=== PATIENT | male | born 2000 | race Hispanic/Latino ===

== ENCOUNTER 2019-07-02 18:46 | Emergency (ER) | payer BC, OTHER ==
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
[2019-07-02] MEDS ORDERED: LORazepam 2 MG/ML VIAL ONE (18:55)
[2019-07-02 19:13] LABS: Absolute Lymphocytes (CBC) 3.2 K/uL (0.7-4.9); Basophils % 0.3 % (0-1.3); Hematocrit 42.8 % (39.6-49.0); Lymphocytes % 44.9 % (15.3-44.8); MPV 9.4 fL (7.6-11.3); RBC Red Blood Cell Count 4.35 M/uL (4.33-5.43)
[2019-07-02 19:17] LABS: Protime INR 0.88
[2019-07-02 19:31] LABS: ALT/SGPT 42 U/L (12-78); AST/SGOT 32 U/L (15-37); Albumin 3.8 g/dL (3.4-5.0); Alkaline Phosphatase 123 U/L (45-117); BUN Blood Urea Nitrogen 22 mg/dL (7-18); Bicarbonate 23 mmol/L (21-32); Bilirubin Direct < 0.1 mg/dL (0-0.2); Bilirubin Total 0.2 mg/dL (0.2-1.0); Glucose Level 112 mg/dL (74-106); Potassium 3.7 mmol/L (3.5-5.1); Sodium Level 142 mmol/L (136-145)
[2019-07-02 20:28] LABS: Barbiturates NEGATIVE (NEGATIVE); Benzodiazepines NEGATIVE (NEGATIVE); Cocaine NEGATIVE (NEGATIVE); METHAMPHETAM NEGATIVE (NEGATIVE); Methadone NEGATIVE (NEGATIVE); Opiates NEGATIVE (NEGATIVE); Phencyclidine NEGATIVE (NEGATIVE); THC Cannibis NEGATIVE (NEGATIVE)
--- NOTE | 2019-07-02 20:28 | RAD REPORT ---
EXAM DESCRIPTION: CT - Head Brain Wo Cont - 07/02/2019 7:39 pm CLINICAL HISTORY: Seizure COMPARISON: None. TECHNIQUE: Axial 5 mm thick images of the head were obtained without IV contrast. All CT scans are performed using dose optimization technique as appropriate and may include automated exposure control or mA/KV adjustment according to patient size. FINDINGS: No intracranial hemorrhage is present. There is extensive encephalomalacia involving nearl y the entirety of the left cerebral hemisphere. Left cerebellum is intact. Left thalamus and most of the left basal ganglia region remains intact. Left lateral ventricle has enlarged in proportion to th e amount of volume loss. There is midline shift that is associated with the volume loss. No mass effe ct or acute etiology causing midline shift. No cortical edema or sulcal effacement. No acute infarcti on is suspected. Delete select Mastoid air cells and visualized portions of the paranasal sinuses are clear. Postsurgical changes are noted to the left side of the skull. IMPRESSION: No hemorrhage, mass or acute intracranial finding. Near complete encephalomalacia the left cerebral hemisphere sparing the basal ganglia and thalamus.
[2019-07-02 20:37] LABS: Urine Bacteria <20 /HPF (NONE SEEN)
[2019-07-02 20:38] LABS: Urine Blood TRACE (NEG); Urine Glucose NEGATIVE (NEG); Urine Protein 2+ (NEG); Urine Specific Gravity >1.030 (1.005-1.030)
[2019-07-02 20:38] LABS: Urine Amorphous Sediment 2+ /HPF (NONE SEEN); Urine Culture Reflex Order NOT NEEDED; Urine Mucus 2+ /HPF (NONE SEEN)
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
--- NOTE | 2019-07-02 22:13 | ER ---
Nurse's Notes 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 BGL-131 mg/dl. he has been Vitally stable. 19:05 Transition of care: patient was not received from another setting of care. Onset of mg2 symptoms was July 02, 2019. Risk Assessment: Do you want to hurt yourself or someone else? Patient reports no desire to harm self or others. Initial Sepsis Screen: Does the patient meet any 2 criteria? No. Patient's initial sepsis screen is negative. Does the patient have a suspected source of infection? No. Patient's initial sepsis screen is negative. 19:05 Method Of Arrival: EMS: [facility] mg2 19:05 Acuity: SILVANO 3 mg2 19:38 Care prior to arrival: None. mg2 Historical: - Allergies: 19:38 No Known Allergies; mg2 - Home Meds: 19:38 None [Active]; mg2 - PMHx: 19:38 Seizures; mg2 - PSHx: 19:38 None; mg2 - Immunization history:: Flu vaccine is up to date. - Social history:: Smoking status: Patient/guardian denies using tobacco, Patient/guardian denies using alcohol, street drugs, IV drugs. - Ebola Screening: : No symptoms or risks identified at this time. Screenin:33 Abuse screen: Denies threats or abuse. Denies injuries from another. Nutritional mg2 screening: No deficits noted. Tuberculosis screening: No symptoms or risk factors identified. Fall Risk Secondary diagnosis (15 points) seizures, IV access (20 points). Gait- Impaired (20 pts.). Mental Status- Overestimates/Forgets Limitations (15 pts.). Assessment: 18:58 Neuro: Level of Consciousness is post ictal, Seizure activity noted at this time. mg2 reported prior to arrival. Type of seizure: atonic seizure. Cardiovascular: Capillary refill < 3 seconds Patient's skin is warm and dry. Rhythm is sinus tachycardia. Respiratory: Airway is patent Respiratory effort is even, unlabored, Respiratory pattern is regular, symmetrical. GI: No signs and/or symptoms were reported involving the gastrointestinal system. : No signs and/or symptoms were reported regarding the genitourinary system. EENT: No signs and/or symptoms were reported regarding the EENT system. Derm: Skin is intact, is healthy with good turgor, Skin is pink, warm \T\ dry. normal. Musculoskeletal: patient is contracted but that is hid baseline. 19:10 General: Appears in no apparent distress. comfortable, Behavior is appropriate for age. mg2 19:33 Reassessment: patient sent to de via stretcher. Pain: Unable to use pain scale. Patient mg2 appears quiet, patient is sleeping. 21:32 Reassessment: Patient appears in no apparent distress at this time. Patient and/or mg2 family updated on plan of care and expected duration. Pain level reassessed. Vital Signs: 19:05 BP 117 / 78; Pulse 119; Resp 18; Temp 97.9; Pulse Ox 96% on R/A; Weight 43.54 kg (R); mg2 20:00 BP 113 / 90; Pulse 62; Resp 18; Pulse Ox 97% ; mg2 21:31 BP 98 / 73; Pulse 60; Resp 18; Pulse Ox 98% on R/A; mg2 ED Course: 18:55 Patient arrived in ED. mg2 19:03 Manuel Azul PA is PHCP. jr8 19:03 Gilbert Marques MD is Attending Physician. jr8 19:28 Jose Goldman RN is Primary Nurse. mg2 19:30 Triage completed. mg2 19:31 Arm band placed on. mg2 19:32 No provider procedures requiring assistance completed. Maintain EMS IV. Dressing mg2 intact. Good blood return noted. Site clean \T\ dry. Gauge \T\ site: 22 \T\ RH. 19:37 CT completed. Patient tolerated procedure well. Patient moved to ID via stretcher. Patient moved back from ID. 19:38 Patient has correct armband on for positive identification. station detective on. Pulse mg2 ox on. NIBP on. Door closed. Warm blanket given. 20:15 Straight cath inserted, using sterile technique, 14 Fr. Returned 200. Patient tolerated mg2 well. 22:59 IV discontinued, intact, bleeding controlled, No redness/swelling at site. Pressure mg2 dressing applied. Administered Medications: 18:56 Drug: Ativan 1 mg Route: IVP; Site: right hand; mg2 19:57 Follow up: Response: No adverse reaction mg2 Outcome: 22:11 Discharge ordered by MD. mccrary 22:59 Discharged to home via wheelchair, with family. mg2 22:59 Condition: stable 22:59 Discharge instructions given to family, Instructed on discharge instructions, follow up and referral plans. Demonstrated understanding of instructions, follow-up care. 23:00 Patient left the ED. mg2 Signatures: Shawn Allen Josh, PA PA jr8 Jose Goldman, RN RN mg2
[2019-07-03 01:14] VITALS: BP 98/73; O2SAT 98
--- NOTE | 2019-07-03 07:52 | EKG ---
Test Date: 2019-07-02 Test Time: 19:07:12 Airway Traffic Controller: MG MEASUREMENT RESULTS: Intervals: Rate: 107 DC: 150 QRSD: 74 QT: 316 QTc: 421 [place]: P: 51 DC: 150 QRS: 42 T: 49 INTERPRETIVE STATEMENTS: Sinus tachycardia Otherwise normal ECG Compared to ECG 07/02/2019 19:06:14 No significant changes Electronically Signed On 07-03-19 07:51:23 AUTOPSY PATHOLOGIST by Jude Greene
== END 2019-07-02 23:00 | disposition home or self-care (01) ==
LOC: ER 18:46
DX: R56.9 Unspecified convulsions (principal)
CPT/HCPCS: 36415; 51702; 70450; 80048; 80076; 80307; 80320; 80329; 81003; 81015; 85025; 85610; 85730; 93005; 96374; 99284

== ENCOUNTER 2019-11-06 03:04 | Observation (INO) | payer BC, OTHER ==
[2019-11-06 07:11] VITALS: BMI 17.6
[2019-11-06 14:21] VITALS: O2SAT 98
[2019-11-06 17:39] VITALS: BP 100/63; TEMP 96
== END 2019-11-06 17:06 | disposition home or self-care (01) ==
LOC: ER 03:04 → ERHOLD 05:03 → 4TH 05:53 → 2ND 11:27
PROVIDERS: ADMIT Hospitalist; ATTEND Hospitalist
DX: G40.909 Epilepsy, unspecified, not intractable, without status epilepticus (principal); G80.9 Cerebral palsy, unspecified; T68.XXXA Hypothermia, initial encounter; M24.50 Contracture, unspecified joint; Z20.828 Contact with and (suspected) exposure to other viral communicable diseases
CPT/HCPCS: 36415; 51702; 71045; 80048; 80076; 81003; 81015; 83690; 83735; 85025; 87040; 87070; 87081; 87086; 87088; 87184; 87205; 87804; 93005; 96374; 96375; 99285; G0378; J0696; J1953; J3475; J7030; J7040; U0002

== ENCOUNTER 2020-01-02 20:41 | Emergency (ER) | payer BC, OTHER ==
--- OUTSIDE RECORDS SUMMARY | 2020-01-02 20:43 | XMS REPORT | Summary of Care ---
:2000 Author Organization [facility] [place] Address [address] [place] [address]- Encounter HQ Meliza(FIN) [id number] Date(s): 11/14/19 - 11/14/19 [facility] [place] [address] [place] [address] [phone] Discharge Disposition: Home or Self Care Attending Physician: Jose Acosta MD Referring Physician: Jose Acosta MD Vital Signs No data available for this section Problem List Condition Effective Dates Status Health Status Informant Epilepsy(Confirmed) Active Brain damage(Confirmed) Active Allergies, Adverse Reactions, Alerts No Known Medication Allergies Medications lacosamide 50 mg oral tablet 50 mg = 1 tab, PO, BID, # 60 tab, 1 Refill(s), Pharmacy: [place] [id number] Start Date: 11/14/19 Stop Date: 01/13/20 Status: OrderedlevETIRAcetam 500 mg oral tablet See Instructions, 1/2 tab PO Daily, # 30 tab, 1 Refill(s), other Start Date: 11/14/19 Status: Ordered Results No data available for this section Immunizations No data available for this section Procedures Procedure Date Related Diagnosis Body Site Status Craniotomy Completed Social History Social History Type Response Employment/School 1 Smoking Status Never smoker; Exposure to To bacco Smoke Unable to obtain; Cigarette Smoking Last 365 Days Unable to obtain; Reg Smoking Cessation Counseling No entered on: 11/13/19 1May release medical information to-Zuri Whitehead- Geovany Assessment and Plan No data available for this section
--- OUTSIDE RECORDS SUMMARY | 2020-01-02 20:43 | XMS REPORT | Continuity of Care Document ---
:2000 Author Organization [employer] Care Team Providers Name Role Phone [employer] Unavailable Un available Problems Problem Status Onset Classification Date Comments Sourc e Date Reported Epilepsy Active Problem 11/16/2019 [facility] (disorder) Neuro Traumatic Active Problem 11/16/2019 [facility] AND/OR Neuro non-traumatic brain injury (disorder) Medications Medication Details Route Status Patient Ordering Order Source Instructions Provider Date Levetiracetam See Active Mischer 500 MG Oral Instructions 020 Neuro Tablet , 1/2 tab PO Daily, # 30 tab, 1 Refill(s), other lacosamide 50 mg 50 mg = 1 Active Misch er oral tablet tab, PO, 020 Neuro BID, # 60 tab, 1 Refill(s), Pharmacy: [place] [id number] Levetiracetam 500 mg = 1 No Longer Misch er 500 MG Oral tab, PO, Active 020 Neuro Tablet Daily, X 30 day, # 30 tab, 3 Refill(s), Pharmacy: [place] [id number] Amoxicillin 0 Refill(s) Active [facility]ischer 020 Neuro Folic Acid 1 MG 0 Refill(s) Inactive Mis keanu Oral Tablet 020 Neuro Levetiracetam 0 Refill(s) Inactive Misch er 500 MG Oral 020 Neuro Tablet Allergies, Adverse Reactions, Alerts Substance Category Reaction Severity Reaction Status Date Comments S ource type Reported No Known Assertion Drug Misch er Medication allergy Neuro Allergies Immunizations No Data Provided for This Section Results No Data Provided for This Section Pathology Reports No Data Provided for This Section Diagnostic Reports No Data Provided for This Section Consultation Notes No Data Provided for This Section Discharge Summaries No Data Provided for This Section History and Physicals No Data Provided for This Section Vital Signs Vital Sign Value Date Comments Source Systolic (mm Hg) 106 11/13/2019 [facility] Diastolic (mm Hg) 77 11/13/2019 [facility] Heart Rate 67 11/13/2019 [facility] Respitory Rate 16 11/13/2019 [facility] Neuro Temperature Oral (F) 85.3 F 11/13/2019 [facility] Neuro Encounters Location Location Encounter Encounter Reason Attending ADM DC Stat us Source Details Type Number For Provider Date Date Visit Outpatient [id number] Jose 11/12 Active [facility] /2019 [facility] Outpatient [id number] Jose 11/12 11/13 [facility] /2019 [facility] [id number] Jose 11/13 Active [facility] /2019 [facility] Outpatient [id number] Jose 11/13 11/14 [facility] /2019 [facility] [id number] Jose 01/13 Active [facility] /2019 Isael Procedures Procedure Code Date Perfomer Comments Source Craniotomy [id number] [facility] Neuro Assessment and Plan No Data Provided for This Section Plan of Care No Data Provided for This Section Social History Social History Date Source Social History TypeResponse 11/13/2019 [facility] Neur o Employment/School 1 Smoking Status Never smoker; Exposure to Tobacco Smoke Unable to obtain; Cigarette Smoking Last 365 Days Unable to obtain; Reg Smoking Cessation Counseling No entered on: 11/13/19 1May release medical information to-Zuri Hortonphillip- Mom Family History No Data Provided for This Section Advance Directives No Data Provided for This Section Functional Status No Data Provided for This Section
--- OUTSIDE RECORDS SUMMARY | 2020-01-02 20:44 | XMS REPORT | Summary of Care ---
:2000 Author Organization [facility] [place] Address [address] [place] [address]- Encounter HQ Meliza(RIKKI) [id number] Date(s): 11/13/19 - 11/13/19 [facility] [place] [address] [place] [address]- [phone] Discharge Disposition: Home or Self Care Attending Physician: Jose Acosta MD Referring Physician: Jose Acosta MD Vital Signs Most recent to oldest [Reference Range]: 1 Temperature Oral [96.4-99.1 DegF] 85.3 DegF *LOW* (11/13/19 2:16 PM) Blood Pressure [90-140/60-90 mmHg] 106/77 mmHg (11/13/19 2:16 PM) Respiratory Rate [14-20 BRMIN] 16 BRMIN (11/13/19 2:16 PM) Peripheral Pulse Rate [60-100 bpm] 67 bpm (11/13/19 2:16 PM) Problem List Condition Effective Dates Status Health Status Informant Epilepsy(Confirmed) Active Brain damage(Confirmed) Active Allergies, Adverse Reactions, Alerts No Known Medication Allergies Medications amoxicillin 0 Refill(s) Start Date: 11/13/19 Status: Orderedfolic acid 1 mg oral tablet 0 Refill(s) Start Date: 11/13/19 Stop Date: 11/13/19 Status: DiscontinuedlevETIRAcetam 500 mg oral tablet 0 Refill(s) Start Date: 11/13/19 Stop Date: 11/13/19 Status: DiscontinuedlevETIRAcetam 500 mg oral tablet 500 mg = 1 tab, PO, Daily, X 30 day, # 30 tab, 3 Refill(s), Pharmacy: [place] [id number] Start Date: 11/13/19 Stop Date: 11/14/19 Status: Completed Results No data available for this section [...] 11/13/19 1May release medical information to-Zuri Whitehead- Mom Assessment and Plan No data available for this section
--- OUTSIDE RECORDS SUMMARY | 2020-01-02 20:44 | XMS REPORT | Continuity of Care Document ---
:[address] [facility] [place] [place] t Address [address] [place] [address] Care Team Providers Name Role Phone DinahGilbert murillo Attending Clinician Problems Condition Condition Condition Status Onset Resolution Last Treating Co mments Source Name Details Category Date Date Treatment Clinician Date Traumatic Traumatic Problem Active [facility] - injury, injury, Memoria without without l loss of loss of Outpati consciousn consciousn en t ess, ess, Clinics sequela sequela Total Total Problem Active [facility] self[facility]care self-care [facility] - deficit deficit [facility] Outpat[facility] ent Clinics Seasonal Seasonal Problem Active [facility] - rhinitis rhinitis Mem[facility] a l Outpati ent Clinics Shaken Shaken Problem Active [facility] - syndrome, syndrome, Tavo sabas sequela sequela l Outpati ent Clinics Seizures Seizures Problem [facility] 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[facility] able able [facility] - epilepsy epilepsy Memori a without without l status status Outpati epilepticu epilepticu en t s, s, Clinics unspecifie unspecifie d epilepsy d epilepsy type type Incontinen Incontinen Problem Active [facility] ce of ce of [facility] - feces, feces, Memoria unspecifie unspecifie l d fecal d fecal Outpati incontinen incontinen en t ce type ce type Clinics Wheelchair 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 Natalie kes - Mem[facility] l Outpati ent Clinics Urinary Urinary Problem Active [facility] incontinen incontinen Natalie kes - ce, ce, Memoria unspecifie unspecifie l d type d type Outpati ent Clinics Swelling Swelling Problem [facility] right [facility] right [facility] - foot foot [facility] Clin[facility] Right foot Right foot Problem Active [facility] pain pain [facility] Pain, Pain, Diagnosis Active [facility] joint, joint, [facility] - foot, foot, Memoria right right l Outpati ent Clinics Epilepsy Problem Active 2019-11-16 Mem oria (disorder) 23:22:21 l Epilepsy Sharif n (disorder) Active Problem 11/16/2019 [facility] Traumatic Problem Active 2019-11-16 Me moria AND/OR 23:22:21 l non-trauma Sharif n tic brain Traumatic injury AND/OR (disorder) non-trauma tic brain injury (disorder) Active Problem 11/16/2019 [facility] Allergies, Adverse Reactions, Alerts Allergy Allergy Status Severity Reaction(s) Onset Inactive Treating Comm ents Source Name Type Date Date Clinician No Known No Known Active Memori a Medicati Medicati l on on Isael Allergie Allergthad s s Social History Social Habit Start Date Stop Date Quantity Comments Source Social History 2019-11-13 2019-11-13 [facility] 19:34:37 19:34:37 Medications Ordered Filled Start Stop Current Ordering Indication Dosage Frequency Signature Comments Components Source Medication Medication Date Date Medication? Clinician (SIG) Name Name Levetiracet Yes See Memori a am 500 MG 4-30 Instructio l Oral Tablet 23:34: ns, 1/2 Her dubose 00 tab PO Daily, # 30 tab, 1 Refill(s), other lacosamide Yes 50 mg = 1 Me moria 50 mg oral 4-30 tab, PO, l tablet 23:34: BID, # 60 Sharif n 00 tab, 1 Refill(s), Pharmacy: [place] [id number] Levetiracet 2020-0 No 500 mg = 1 Memoria am 500 MG 4-29 tab, PO, l Oral Tablet 20:03: Daily, X He rmann 00 30 day, # 30 tab, 3 Refill(s), Pharmacy: [place] [id number] Amoxicillin 2019-0 Yes 0 Memori a 4-29 Refill(s) l 19:34: [place] 00 Folic Acid 2019-0 No 0 Memoria 1 MG Oral 4-29 Refill(s) l Tablet 19:27: [place] 00 Levetiracet 2020-0 No 0 Memori a am 500 MG 4-29 Refill(s) l Oral Tablet 19:27: Sharif n 00 Immunizations Ordered Filled Immunization Date Status Comments Sour e Immunization Name Name Flucelvax - single Flucelvax - single 2019-07-[address] [facility] - dose syringe dose syringe 00:00:00 [facility] Vital Signs Vital Name Observation Time Observation Value Comments Source Systolic (mm Hg) 2019-11-13 19:16:00 Tavo [place] Diastolic (mm Hg) 2019-11-13 19:16:00 Mem orial [facility]ael Heart Rate 2019-11-13 19:16:00 [facility] [place] Respitory Rate 2019-11-13 19:16:00 Memori al [place] Temperature Oral (F) 2019-11-13 19:16:00 85.3 F [facility] Procedures Procedure Date / Time Performed Performing Clinician Sour e Craniotomy [facility] Encounters Start End Encounter Admission Attending Care Care Encounter Source Date/Time Date/Time Type Type Clinicians Facility Department ID 2019-11-14 2019-11-14 Outpatient NELSON Acosta [facility] [id number] 15:30:00 23:59:59 Jose 02 Gilbert 2019-11-13 2019-11-13 Outpatient NELSON Acosta [facility] [id number] 14:30:00 23:59:59 Jose 00 [facility] 2019-07-25 2019-07-25 Outpatient Loan Roberts [id number] [facility] 15:30:00 15:30:00 [facility] 2019-07-01 2019-07-01 Outpatient Loan Roberts [id number] 11:15:00 11:15:00 [facility] ent Clinics 2019-04-17 2019-04-17 Outpatient Loan Catest [id number] 15:11:00 15:11:00 [facility] ent Clinics 2019-04-04 2019-04-04 Outpatient Loan Catest [id number] 20:45:00 20:45:00 [facility] ent Clinics 2019-03-28 2019-03-28 Outpatient Loan Catest [id number] 09:00:00 09:00:00 t [facility] Medicine Outpati ent Clinics Results This patient has no known results.
--- NOTE | 2020-01-02 23:21 | ER ---
Nurse's Notes [facility] Name: Axel Adkins Age: 19 yrs Sex: Male : 2000 Arrival Date: 01/02/2020 Time: 20:56 Bed Waiting Private MD: Michaela Boyer Diagnosis: Presentation: 01/01 21:03 Chief complaint: Parent and/or Guardian states: "He has been having some swelling on jd3 his right arm and a lump on his right elbow. he is also having rashes stomach groin, and right underarm area. he was supposed to go to his doctor, but they canceled the appointment. the good side is no fevers.". Coronavirus screen: Proceed with normal triage. Ebola Screen: Patient negative for fever greater than or equal to 101.5 degrees Fahrenheit, and additional compatible Ebola Virus Disease symptoms. Initial Sepsis Screen: Does the patient meet any 2 criteria? No. Patient's initial sepsis screen is negative. Does the patient have a suspected source of infection? No. Patient's initial sepsis screen is negative. Risk Assessment: Do you want to hurt yourself or someone else? Patient reports no desire to harm self or others. Onset of symptoms was October 2019. 21:03 Method Of Arrival: Wheelchair jd3 21:03 Acuity: SILVANO 3 jd3 Historical: - Allergies: 21:07 No Known Allergies; jd3 - Home Meds: 21:07 levetiracetam oral oral [Active]; Vimpat oral oral [Active]; jd3 - PMHx: 21:07 Cerebral Palsy; Seizures; jd3 - PSHx: 21:07 None; jd3 - Immunization history:: Adult Immunizations up to date. - Social history:: Smoking status: Patient denies any tobacco usage or history of. Vital Signs: 21:07 BP 95 / 64; Pulse 70; Resp 20 S; Temp 98.7(O); Pulse Ox 99% on R/A; Weight 43.09 kg (R);jd3 ED Course: 20:56 Patient arrived in ED. es 20:56 Michaela Boyer MD is Private Physician. es 21:05 Triage completed. jd3 21:07 Arm band placed on. jd3 Administered Medications: No medications were administered Outcome: 23:18 Eloped from waiting room, before seeing physician Time discovered patient gone: December jdanny 2019 at 22:04 23:20 Patient left the ED. jdanny Signatures: Maegan Grimes Jonathon RN RN jd3
[2020-01-02 23:24] VITALS: BP 95/64; TEMP 98.7; O2SAT 99
== END 2020-01-02 23:20 | disposition left against medical advice (07) ==
LOC: ER 20:41
DX: Z53.21 Procedure and treatment not carried out due to patient leaving prior to being seen by health care provider (principal)
CPT/HCPCS: 99281

== ENCOUNTER 2020-01-11 13:09 | Emergency (ER) | payer BC, OTHER ==
--- OUTSIDE RECORDS SUMMARY | 2020-01-11 13:12 | XMS REPORT | Continuity of Care Document ---
:2000 Author Organization [employer] Care Team Providers Name Role Phone [employer] Unavailable Un available Problems Problem Status Onset [...] BID, # 60 tab, 1 Refill(s), Pharmacy: [place] [id number] Levetiracetam 500 mg = 1 No Longer Misch er 500 MG Oral tab, PO, Active 020 Neuro Tablet Daily, X 30 day, # 30 tab, 3 Refill(s), Pharmacy: [place] [address] Amoxicillin 0 Refill(s) Active [facility] 020 Neuro [...] 11/13/2019 [facility] Respitory Rate 16 11/13/2019 [facility] Neuro Temperature Oral (F) 85.3 F 11/13/2019 [facility] Neuro Encounters Location Location Encounter Encounter Reason Attending ADM DC Stat us Source Details Type Number For Provider Date Date Visit Outpatient [id number] Jose 11/12 Active [facility] /2019 Isael MNA Outpatient [id number] Jose 11/12 11/13 [facility] Neurology Kre /2019 Neuro [place] Outpatient [id number] Jose 11/13 Active [facility] /2019 Isael MNA Outpatient [id number] Jose 11/13 11/14 [facility] Neurology Kre /2019 Neuro [place] Outpatient [id number] Jose 01/13 Active [facility] /2019 Isael Procedures Procedure Code Date Perfomer Comments Source Craniotomy [id number] [facility] Neuro Assessment and Plan No Data Provided for This Section Plan of Care No Data Provided for This Section Social History Social History Date Source Social History TypeResponse 11/13/2019 [facility] Neur o Employment/School 1 Smoking Status Never [...]
--- OUTSIDE RECORDS SUMMARY | 2020-01-11 13:13 | XMS REPORT | Continuity of Care Document ---
:2000 Author Organization [facility] t Address [address] [place] [address] Care Team Providers Name Role Phone DinahGilbert [...] Quantity Comments Source Social History 2019-11-13 2019-11-13 [facility] 19:34:37 19:34:37 Medications Ordered Filled Start Stop [...] Sharif n 00 tab, 1 Refill(s), Pharmacy: [place] [id number] Levetiracet 2020-0 No 500 mg = 1 Memoria am 500 MG 4-29 tab, PO, l Oral Tablet 20:03: Daily, X He rmann 00 30 day, # 30 tab, 3 Refill(s), Pharmacy: [place] [id number] Amoxicillin 2019-0 Yes 0 Memori a 4-29 Refill(s) l 19:34: [place] 00 Folic Acid 2019-0 No 0 Memoria 1 MG Oral 4-29 Refill(s) l Tablet 19:27: [place] 00 Levetiracet 2020-0 No 0 Memori a am 500 MG 4-29 Refill(s) l Oral Tablet 19:27: Sharif n 00 Immunizations Ordered Filled Immunization Date Status Comments Sour e Immunization Name Name Flucelvax - single Flucelvax - single 2019-07-[address] [facility] - dose syringe dose syringe 00:00:00 [facility] Vital Signs Vital Name Observation Time Observation Value Comments Source Systolic (mm Hg) 2019-11-13 19:16:00 T[facility] Diastolic (mm Hg) 2019-11-13 19:16:00 Mem orial [facility]ael Heart Rate 2019-11-13 19:16:00 [facility] [place] Respitory Rate 2019-11-13 19:16:00 Memori al [place] Temperature Oral (F) 2019-11-13 19:16:00 85.3 F [facility] Procedures Procedure Date / Time Performed Performing Clinician Sour e Craniotomy [facility] Encounters Start End Encounter Admission Attending Care Care Encounter Source Date/Time Date/Time Type Type Clinicians Facility Department ID 2019-11-14 2019-11-14 Outpatient NELSON Acosta [facility] [id number] 15:30:00 23:59:59 Jose 02 Gilbert 2019-11-13 2019-11-13 Outpatient NELSON Acosta [facility] [id number] 14:30:00 23:59:59 Jose 00 [facility] 2019-07-25 2019-07-25 Outpatient Loan Roberts [id number] 15:30:00 15:30:00 [facility] 2019-07-01 2019-07-01 Outpatient Loan Roberts [id number] 11:15:00 11:15:00 [facility] ent Clinics 2019-04-17 2019-04-17 Outpatient Loan Catest [id number] 15:11:00 15:11:00 [facility] ent Clinics 2019-04-04 2019-04-04 Outpatient Loan Catest [id number] 20:45:00 20:45:00 [facility] ent Clinics 2019-03-28 2019-03-28 Outpatient Loan Catest [id number] 09:00:00 09:00:00 [place] Family [facility] Medicine Outpati ent Clinics Results This patient has no known results.
[2020-01-11] MEDS ORDERED: HYDROCODONE/APAP 10/325 TAB ONE (14:56)
[2020-01-11] MEDS ORDERED: dexAMETHasone 10 MG/ML VIAL ONE (14:56)
[2020-01-11 15:04] LABS: Absolute Lymphocytes (CBC) 0.7 K/uL (0.7-4.9); Basophils % 0.6 % (0-1.3); Hematocrit 36.9 % (39.6-49.0); Lymphocytes % 15.6 % (15.3-44.8); MPV 8.6 fL (7.6-11.3); RBC Red Blood Cell Count 3.84 M/uL (4.33-5.43)
[2020-01-11 15:27] LABS: ALT/SGPT 64 U/L (12-78); AST/SGOT 153 U/L (15-37); Alkaline Phosphatase 176 U/L (45-117); BUN Blood Urea Nitrogen 24 mg/dL (7-18); Bicarbonate 25 mmol/L (21-32); Bilirubin Total 0.5 mg/dL (0.2-1.0); Glucose Level 47 mg/dL (74-106); Protein, Total 8.4 g/dL (6.4-8.2); Sodium Level 136 mmol/L (136-145)
[2020-01-11 15:31] LABS: Potassium 5.8 mmol/L (3.5-5.1)
[2020-01-11] MEDS ORDERED: D50W 25 GM/50 ML SYRINGE/VIAL IV ONE (15:43)
[2020-01-11 15:44] LABS: Blood Morphology Comment NOT SEEN (NOT SEEN); Platelet Estimate DECR; Platelets, Giant FEW
[2020-01-11] MEDS ORDERED: NA CHLORIDE 0.9% 500 ML ONE (15:54)
[2020-01-11 17:04] LABS: BUN Blood Urea Nitrogen 20 mg/dL (7-18); Bicarbonate 20 mmol/L (21-32); Glucose Level 104 mg/dL (74-106); Potassium 3.8 mmol/L (3.5-5.1); Sodium Level 143 mmol/L (136-145)
--- NOTE | 2020-01-11 18:01 | ER ---
Nurse's Notes [facility] Name: Axel Adkins Age: 19 yrs Sex: Male : 2000 Arrival Date: 01/11/2020 Time: 13:11 Bed 7 Private MD: Diagnosis: Pressure ulcer of left elbow-stage 2;Hypoglycemia, unspecified Presentation: 01/10 13:50 Chief complaint: Patient states: He is handicapped and he has epilepsy. He has bursitis ca1 with infection on his L elbow and since then he has been in pain and having seizures since 01 of January. Denies fever. He won't eat or drink. Coronavirus screen: Proceed with normal triage. Patient denies a cough. Patient denies shortness of breath or difficulty breathing. Patient denies measured and/or subjective temperature greater than 100.4F prior to today's visit. Patient denies travel on a cruise ship or to a country the [facility] currently lists as an affected area. Patient denies contact with known and/or suspected case of COVID-19. Ebola Screen: Patient negative for fever greater than or equal to 101.5 degrees Fahrenheit, and additional compatible Ebola Virus Disease symptoms Patient denies exposure to infectious person. Patient denies travel to an Ebola-affected area in the 21 days before illness onset. No symptoms or risks identified at this time. Initial Sepsis Screen: Does the patient meet any 2 criteria? No. Patient's initial sepsis screen is negative. Does the patient have a suspected source of infection? No. Patient's initial sepsis screen is negative. Risk Assessment: Do you want to hurt yourself or someone else? Patient reports no desire to harm self or others. Onset of symptoms was January 11, 2020. 13:50 Method Of Arrival: Wheelchair ca1 13:50 Acuity: SILVANO 3 ca1 Historical: - Allergies: 13:54 No Known Allergies; ca1 - Home Meds: 13:54 levetiracetam Oral [Active]; Vimpat Oral [Active]; ca1 13:54 Cephalexin Oral [Active]; ca1 - PMHx: 13:54 Cerebral Palsy; Seizures; ca1 - PSHx: 13:54 None; ca1 - Immunization history:: Adult Immunizations up to date. - Social history:: Smoking status: Patient denies any tobacco usage or history of. Screenin:35 Abuse screen: Denies threats or abuse. Nutritional screening: No deficits noted. em Tuberculosis screening: No symptoms or risk factors identified. Fall Risk None identified. Assessment: 14:40 General: Appears in no apparent distress. comfortable, Behavior is calm. Pain: Unable em to use pain scale. FLACC scale score is 0 out of 10. Neuro: Level of Consciousness is awake, pt is nonverbal . Cardiovascular: Capillary refill < 3 seconds Patient's skin is warm and dry. Respiratory: Airway is patent Respiratory effort is even, unlabored. Derm: Skin is intact, is healthy with good turgor, Wound noted left elbow Other: redness and swelling noted to left elbow. 15:43 Reassessment: Patient appears in no apparent distress at this time. Patient and/or em family updated on plan of care and expected duration. Pain level reassessed. 17:00 Reassessment: Patient appears in no apparent distress at this time. Patient and/or em family updated on plan of care and expected duration. Pain level reassessed. 18:00 Reassessment: Patient appears in no apparent distress at this time. Patient and/or em family updated on plan of care and expected duration. Pain level reassessed. Vital Signs: 13:50 BP 100 / 72; Pulse 58; Resp 18 S; Pulse Ox 94% on R/A; ca1 15:54 BP 87 / 60; Pulse 60; Resp 18; Temp 97.8; Pulse Ox 95% on R/A; em 16:38 BP 104 / 84; Pulse 55; Resp 16; Pulse Ox 99% on R/A; em 17:14 BP 108 / 90; Pulse 51; Resp 17; Pulse Ox 100% ; jl7 ED Course: 13:11 Patient arrived in ED. ag5 13:53 Triage completed. ca1 13:54 Arm band placed on right wrist. ca1 13:57 Pastor Moyer NP is PHCP. pm1 13:57 Surya Mcfarland MD is Attending Physician. pm1 14:11 Matthew Champion, ALANIS is Primary Nurse. em 14:35 Patient has correct armband on for positive identification. Bed in low position. Call em light in reach. Side rails up X2. Adult w/ patient. Pulse ox on. NIBP on. 14:35 Seizure precautions initiated. em 14:45 Initial lab(s) drawn, by me, sent to lab. Inserted saline lock: 22 gauge in left em forearm, using aseptic technique. Blood collected. 18:45 Wound care: to decubitus located on left elbow was dressed with Neosporin Kerlix, em Patient tolerated well. 18:57 No provider procedures requiring assistance completed. IV discontinued, intact, em bleeding controlled, No redness/swelling at site. Pressure dressing applied. Administered Medications: 15:41 Drug: D50W 50 ml Route: IVP; Site: left forearm; em 16:11 Follow up: Response: No adverse reaction; Blood sugar is elevated em 15:52 Drug: NS 0.9% 500 ml Route: IV; Rate: bolus; Site: left forearm; em 16:30 Follow up: IV Status: Completed infusion; IV Intake: 500ml em 18:43 Drug: Bactroban Ointment 2 % 1 application {Note: left wound.} Route: Topical; Site: em wound; Intake: 16:30 IV: 500ml; Total: 500ml. em Outcome: 18:00 Discharge ordered by MD. pm1 19:08 Discharged to home via wheelchair, with family. em 19:08 Condition: good 19:08 Discharge instructions given to family, Instructed on discharge instructions, follow up and referral plans. the need for admit, wound care, Demonstrated understanding of instructions, follow-up care, medications, wound care, Prescriptions given X 1. 19:09 Patient left the ED. em Addendum: 01/16/2020 08:01 Addendum: Culture Results: Positive wound culture. Patient was not prescribed s v antibiotics at discharge. Report given to ALEIDA for further evaluation and then to drywall carrier for follow up with patient. Phone call Attempt #1 called and spoke with mother of pt. She stated that he had finished Keflex already and he has a [facility] appt today at 1200. I informed her that I would send the report to [facility] and have the MD look at it. I called [facility] and spoke with Aliya and informed her of the report, she stated that she would print out the report and give it to the MD. Signatures: Rebeca Chaudhary RN RN Matthew Champion RN RN em Pastor Moyer, GIOVANNY [employer] O[employer]ED SALES MANAGER pm1 Roya Olsen RN RN jl7 Acob, Helen, RN Arnoldo Moore ag5 Corrections: (The following items were deleted from the chart) 01/10 17:54 15:54 BP 87 / 60; Pulse 60bpm; Resp 18bpm; Pulse Ox 95% RA; em em
--- NOTE | 2020-01-11 18:01 | EDPHYS ---
Physician Documentation [facility] Name: Axel Adkins Age: 19 yrs Sex: Male : 2000 Arrival Date: 01/11/2020 Time: 13:11 Bed 7 Private MD: ED Physician Surya Mcfarland HPI: 01/10 15:31 This 19 yrs old Male presents to ER via Wheelchair with complaints of Seizure. pm1 15:31 The patient presents the episode(s) was witnessed, by family, mother. Character of pm1 seizure(s): absence seizures. Staring when possibly experiencing pain. Seizure onset: 5-6 days ago. Seizure Hx: Cause: Cerebral Palsy, Seizure medications: Keppra, Vimpat. Associated injury: The patient did not suffer any apparent associated injury. The patient has been recently seen by a physician: [facility] for swelling to left elbow. Was diagnosed with olecranon bursitis and cellulitis and was discharged home with Keflex with Bactrim DS. Historical: - Allergies: 13:54 No Known Allergies; ca1 - Home Meds: 13:54 levetiracetam Oral [Active]; Vimpat Oral [Active]; ca1 13:54 Cephalexin Oral [Active]; ca1 - PMHx: 13:54 Cerebral Palsy; Seizures; ca1 - PSHx: 13:54 None; ca1 - Immunization history:: Adult Immunizations up to date. - Social history:: Smoking status: Patient denies any tobacco usage or history of. ROS: 15:31 Constitutional: Negative for fever, chills, and weight loss, Cardiovascular: Negative pm1 for chest pain, palpitations, and edema, Abdomen/GI: Negative for abdominal pain, nausea, vomiting, diarrhea, and constipation. 15:31 Back: Negative for injury and pain, MS/Extremity: Negative for injury and deformity. 15:31 Respiratory: Positive for cough, with no reported sputum, Negative for shortness of breath, wheezing. 15:31 Skin: Positive for cellulitis, of the left elbow. 15:31 Neuro: Positive for seizure activity. 15:31 All other systems are negative. Exam: 15:31 Head/Face: Normocephalic, atraumatic. pm1 15:31 Chest/axilla: Normal chest wall appearance and motion. Nontender with no deformity. No lesions are appreciated. 15:31 Constitutional: The patient appears in no acute distress, non-toxic, well groomed, well nourished, contracted, frail. 15:31 Cardiovascular: Exam negative for acute changes, Rate: normal, Rhythm: regular, Pulses: no pulse deficits are appreciated. 15:31 Respiratory: Exam negative for acute changes, intercostal retractions, shortness of breath, wheezing. 15:31 Abdomen/GI: Exam negative for acute changes, Inspection: abdomen appears normal, Palpation: abdomen is soft and non-tender, in all quadrants. 15:31 Skin: Appearance: normal except for affected area, abscess, not appreciated, no surrounding cellulitis, no fluctuance or induration. Left elbow appears to be healing stage two pressure ulcer, cellulitis, is not appreciated. Vital Signs: 13:50 BP 100 / 72; Pulse 58; Resp 18 S; Pulse Ox 94% on R/A; ca1 15:54 BP 87 / 60; Pulse 60; Resp 18; Temp 97.8; Pulse Ox 95% on R/A; em 16:38 BP 104 / 84; Pulse 55; Resp 16; Pulse Ox 99% on R/A; em 17:14 BP 108 / 90; Pulse 51; Resp 17; Pulse Ox 100% ; jl7 MDM: 13:57 Patient medically screened. pm1 17:22 Data reviewed: vital signs. Data interpreted: Pulse oximetry: on room air is 100 %. pm1 Interpretation: normal. 17:28 Counseling: I had a detailed discussion with the patient and/or guardian regarding: the pm1 historical points, exam findings, and any diagnostic results supporting the discharge/admit diagnosis, lab results, the need for outpatient follow up, to return to the emergency department if symptoms worsen or persist or if there are any questions or concerns that arise at home. 18:04 ED course: Impression is olecranon bursitis that has become a pressure sore. 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 Patient also uses a wheel chair. Patient with normal WBC with onset of symptoms for for 9-10 days. Mother reports improvement but expected that it would be healed by now. Has appointment with PCP and Neurologist on Monday. Instructed on wound care and Bactroban. Recommend reevaluation by PCP and then consultation with neurologist to determine if any contraindications for restarting bactrim. Uncertain why bactrim was stopped by initial prescriber. It was stopped due to possible increase in seizure activity but bactrim increases effect of Vimpat. Wound culture obtained. . 01/10 14:04 Order name: CBC with Diff pm1 01/10 14:04 Order name: CMP; Complete Time: 15:33 pm1 01/10 15:44 Order name: Manual Differential EDMS 01/10 16:01 Order name: Wound Culture em 01/10 16:16 Order name: Glucose, Ancillary Testing; Complete Time: 16:21 EDMS 01/10 16:21 Order name: BMP; Complete Time: 17:21 pm1 01/10 14:04 Order name: IV Saline Lock; Complete Time: 14:45 pm1 01/10 18:00 Order name: PO challenge; Complete Time: 18:43 pm1 01/10 18:00 Order name: Wound dressing; Complete Time: 18:43 pm1 Administered Medications: 15:41 Drug: D50W 50 ml Route: IVP; Site: left forearm; em 16:11 Follow up: Response: No adverse reaction; Blood sugar is elevated em 15:52 Drug: NS 0.9% 500 ml Route: IV; Rate: bolus; Site: left forearm; em 16:30 Follow up: IV Status: Completed infusion; IV Intake: 500ml em 18:43 Drug: Bactroban Ointment 2 % 1 application {Note: left wound.} Route: Topical; Site: em wound; Disposition: 01/11 07:03 Co-signature as Attending Physician, Surya Mcfarland MD. rn Disposition: 01/11/20 18:00 Discharged to Home. Impression: Pressure ulcer of left elbow - stage 2, Hypoglycemia, unspecified. - Condition is Stable. - Discharge Instructions: Hypoglycemia, Preventing Pressure Injuries, Pressure Injury. - Prescriptions for Bactroban 2 % Topical Ointment - Apply to affected area 1 application by TOPICAL route every 12 hours; 30 gram. - Medication Reconciliation Form, Thank You Letter, Antibiotic Education, Prescription Opioid Use form. - Follow up: Emergency Department; When: As needed; Reason: Worsening of condition. Follow up: Private Physician; When: 2 - 3 days; Reason: Recheck today's complaints, Continuance of care, Re-evaluation by your physician. - Problem is new. - Symptoms have improved. Signatures: Dispatcher [employer] EDMatthew Melendez, RN RN Surya Cardenas MD MD rn Marinas, Patrick, BRAND SALES CONSULTANT BR[employer] SALES CONSULTANT pm1 Bhanu, ALANIS Cervantes RN ca1 Corrections: (The following items were deleted from the chart) 01/10 18:01 18:00 01/11/2020 18:00 Discharged to Home. Impression: Pressure ulcer of left elbow. pm1 Condition is Stable. Forms are Medication Reconciliation Form, Thank You Letter, Antibiotic Education, Prescription Opioid Use. Follow up: Emergency Department; When: As needed; Reason: Worsening of condition. Follow up: Private Physician; When: 2 - 3 days; Reason: Recheck today's complaints, Continuance of care, Re-evaluation by your physician. Problem is new. Symptoms have improved. pm1 18:03 18:01 01/11/2020 18:00 Discharged to Home. Impression: Pressure ulcer of left elbow; pm1 Hypoglycemia, unspecified. Condition is Stable. Forms are Medication Reconciliation Form, Thank You Letter, Antibiotic Education, Prescription Opioid Use. Follow up: Emergency Department; When: As needed; Reason: Worsening of condition. Follow up: Private Physician; When: 2 - 3 days; Reason: Recheck today's complaints, Continuance of care, Re-evaluation by your physician. Problem is new. Symptoms have improved. pm1 19:09 18:03 01/11/2020 18:00 Discharged to Home. Impression: Pressure ulcer of left elbow - em stage 2; Hypoglycemia, unspecified. Condition is Stable. Discharge Instructions: Hypoglycemia. Forms are Medication Reconciliation Form, Thank You Letter, Antibiotic Education, Prescription Opioid Use. Follow up: Emergency Department; When: As needed; Reason: Worsening of condition. Follow up: Private Physician; When: 2 - 3 days; Reason: Recheck today's complaints, Continuance of care, Re-evaluation by your physician. Problem is new. Symptoms have improved. pm1
[2020-01-11] MEDS ORDERED: MUPIROCIN 2% OINT 22GM TUBE TOP ONE (18:42)
[2020-01-11 19:18] VITALS: TEMP 97.8
[2020-01-11 19:21] VITALS: BP 108/90; O2SAT 100
== END 2020-01-11 19:09 | disposition home or self-care (01) ==
LOC: ER 13:09
DX: E16.2 Hypoglycemia, unspecified (principal); L89.022 Pressure ulcer of left elbow, stage 2; G80.9 Cerebral palsy, unspecified
CPT/HCPCS: 96361; 87070; 85025; 80048; 36415; 87205; 82947; 87077 ×2; 87186 ×2; 80053; 96374; 99284; J1100; J7040